=== PATIENT | male | born 1955 | race Caucasian/White ===

== ENCOUNTER 2024-11-17 13:49 | Outpatient (AMB) | payer MEDICARE, BC, SELFPAY ==
[2024-11-17 14:45] VITALS: BMI 23.6
--- NOTE | 2024-11-17 14:45 | HO.SPINEOV ---
Vital Signs 11/17/24 14:45 Height 5 ft 9 in Weight 160 lb BMI 23.6 Intake Visit Reasons: stenosis of spinal canal Intake Note: Mr. Mo is here today c/o Left side low back and leg pain. Patient Centered Care Specialist Required: No Allergies No Known Allergies Allergy (Verified 11/17/24 14:46) Physical Exam Vital Signs: BMI result Body Mass Index 23.6 Assessment & Plan Assessment & Plan (1) Left leg pain: Code(s): M79.605 - Pain in left leg Category: Medical Plan Dear dr Campbell, Thank you for referring Mr Mo to our office today. He is a very nice 69-year-old gentleman who presents to the office today for 1+ year history of left-sided low back pain which radiates down into his posterolateral thigh, into his lateral calf and the top of his foot. The symptoms started ever so slowly, but steadily gotten worse. He will only have the symptoms when he is lying down at night, lying on his left side or more particularly when he is in a car for more than half an hour. When he is sitting down for more than a half an hour, especially in the car he will have to stretch his leg out move himself around or get out of the car and walk to make it go away. No focal weakness reported. He is otherwise active and can move around as he likes. He will take an occasional Motrin. He did try physical therapy but because he does not really have pain when he is active he did not see a significant improvement. PMH: History of a coronary stent about 10 years ago or so but other than that he is very healthy, history of high cholesterol and BPH. Social hx: Does not smoke drink use any recreational drugs Medications: Rosuvastatin, aspirin, Flomax Allergies: None Physical exam: Awake alert oriented no acute distress, full strength of bilateral lower extremities, positive finger Dorita test. Negative MAURICE testing, negative SI joint compression testing. Imaging review: There is a [facility] lumbar MRI showing no evidence of misalignment of the lumbar spine, very modest degenerative disc disease. The radiology report is describing stenosis and degeneration but really there is no significant degenerative disc disease that Dr. Acevedo could see and there is no evidence of any nerve compression in the lumbar spine. Impression: 69-year-old male with left leg pain which shoots down into his foot when he is in a seated position for more than 30 minutes, or lying on his left side at night. Dr. Acevedo and I reviewed his lumbar MRI and there is no evidence of nerve compression anywhere in the lumbar region despite the radiology report stating that there is some encroachment on the nerves. Also, his story does not fit with lumbar stenosis or lumbar radiculopathy in that the symptoms are improved when he gets up and walks around which is usually the opposite of lumbar impingement. We think it could be coming from the L5 nerve as it tracks along the SI joint region. It is well-known that SI joint inflammation or irritation can be worsened with prolonged sitting or lying on the affected side. Often SI joint inflammation can mimic a radiculopathy because of the course of the L5 nerve traversing over the joint after it exits the spine. We would like to send this patient for an SI joint injection with Dr. Nichols to see if we can localize where this is coming from. I would like to see him back after the injection. Thank you for allowing us to care for your patient. The total time spent with this visit with this patient was 45 minutes reviewing history, physical exam, lumbar imaging review, and implementation of treatment plan or further diagnostic testing Dusty Acevedo MD,PhD [facility] Orders: Referrals Physiatry Referral M79.605 - Pain in left leg Coding Level of Care Code New Pt Level 4 (56665) Diagnoses Left leg pain M79.605
== END 2024-11-17 15:50 | disposition home or self-care (01) ==
PROVIDERS: PCP Internal Medicine; Referring Provider Internal Medicine; Visit Provider Physician Assistant
DX: M79.605 Pain in left leg (principal)
CPT/HCPCS: 99204

== ENCOUNTER → 2024-11-17 13:49 | Outpatient (BNVA) | payer MEDICARE, BC, SELFPAY | PROVIDERS: PCP Internal Medicine; Referring Provider Internal Medicine; Visit Provider Physician Assistant | DX: M79.605 Pain in left leg (principal) | CPT/HCPCS: 99202 ==